=== PATIENT | female | born 1975 | race Caucasian/White ===

== ENCOUNTER → 2018-08-15 | Outpatient (CLI) | payer OTHER ==
--- NOTE | 2018-08-15 14:46 | EXE ---
[facility] [address] [place] [address] STRESS ECHOCARDIOGRAM Name: TY VELÁSQUEZ Room #: REG Mihai#: [id number] ������������� Admission: 08/15/18 ������������� Attend Phys: Thaddeus Chang Discharge: ��� ������������� ��� Date of : 73 Date of Service: 08/15/18 1445 �� Report #: [id number] �������� ��������������������������������������������[id number] THIS REPORT FOR: //name// APPROVED REPORT Study performed: 08/15/2018 11:19:23 Exam: Stress Echocardiogram Indication: Palpitations Patient Location: Out-Patient Stress Nurse: Kait Montgomery RN Room #: Echo lab 2 Status: routine Ht: 5 ft 7 in HR: 71 bpm BP: 104/72 mmHg Rhythm: NSR Medical History Exercise History: Physically active Procedure The patient underwent an Exercise Stress Test using the Maurizio Protocol. Blood pressure, heart rate, and EKG were monitored. An Echocardiogram was performed by survey and mapping technician in four stages in quad fashion. At peak stress, four selected images were obtained and placed side by side with resting images for comparison. Stress Test Details Stress Test: Exercise stress testing was performed using a Maurizio protocol. HR Resting HR: 71 bpm Max Heart Rate (APMHR): 176 bpm Max HR Achieved: 171 bpm Target HR (85% APMHR): 149 bpm % of APMHR: 97 Recovery HR: 109 bpm HR response to stress: Normal HR response to stress BP Resting BP: 104/72 mmHg Max BP: 132/64 mmHg Recovery BP: 110/60 mmHg BP response to stress: Normal blood pressure response to stress. ECG [facility] [address] [place] [address] STRESS ECHOCARDIOGRAM Name: TY VELÁSQUEZ Room #: REG [facility]#: [id number] ������������� Admission: 08/15/18 ������������� Attend Phys: Thaddeus Chang Discharge: ��� ������������� ��� Date of : 73 Date of Service: 08/15/18 1445 �� Report #: [id number] �������� ��������������������������������������������[id number] Resting ECG: Sinus Rhythm Stress ECG: Sinus Tachycardia ST Change: Upsloping ST depression Recovery ECG: Sinus Rhythm Clinical Reason for Termination: Maximal effort Exercise duration: 10 min 53 sec Highest Stage Achieved: Stage 4: 4.2 mph at 16% grade. Exercise capacity: 13.4 METs Overall Exercise Capacity for Age: Good Stress ECG Conclusion 1. Subjectively negative for ischemia 2. Elective cardiographic C negative for ischemia 3. Satisfactory functional capacity Pre-Stress Echo The resting Echocardiogram showed normal left ventricular contractility with an estimated Ejection Fraction of about >55%. Post-Stress Echo The stress Echocardiogram showed normal left ventricular contractility with an estimated Ejection Fraction of about 65-70%. Clinical Normal augmentation of myocardial wall segments using a 17 segment model. Conclusion Clinical Response: Non-ischemic Exercise Capacity: Average Stress ECG Response: Non-ischemic Stress Echo Images: Non-ischemic 1. The risk study No prior study available for comparison. Other Information Study Quality: Adequate <Conclusion> 1. The risk study ��������������������������������������������� <ELECTRONICALLY SIGNED> ���������������������������������������� By: Thaddeus Hargrove MD ��������������������������������������������� 08/15/18 1445 1445 1445 Thaddeus Hargrove MD /INF
== END ==
LOC: CV 11:05
DX: E78.5 Hyperlipidemia, unspecified (principal); R42 Dizziness and giddiness; R00.2 Palpitations; Z88.1 Allergy status to other antibiotic agents